=== PATIENT | male | born 1930 | race Caucasian/White ===

== ENCOUNTER 2016-07-24 14:51 | Emergency (ER) | payer SELFPAY ==
[2016-07-24] MEDS ORDERED: Lidocaine 1% 5ml(IM or SUTURE)(PAIN CLINIC) IJ ONE (15:08)
[2016-07-24 17:03] VITALS: BP 132/87
--- NOTE | 2016-07-24 17:05 | ED Physician Documentation ---
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 denies: chest pain, shortness of breath GI/: none. denies: vomiting, nausea (dementia detached retina hi chol) - PAST HX Past History: other (dementia detached retina hi chol) Surgeries/Procedures: none Allergies/Adverse Reactions: Allergies Allergy/AdvReac Type Severity Reaction Status Date / Time No Known Allergies Allergy Verified 07/24/16 15:10 Home Medications: Ambulatory Orders Medication Instructions Recorded Donepezil HCl [Donepezil HCl] 25 mg PO DAILY 07/24/16 Risperidone [Risperdal] 25 mg PO DAILY 07/24/16 - SOCIAL HX Smoking History: non-smoker Alcohol Use: none Drug Use: none - FAMILY HX Family History: No - VITAL SIGNS Vital Signs: Vital Signs Temp Pulse Resp BP Pulse Ox 98.9 F 101 H 20 140/91 97 07/24/16 14:51 07/24/16 14:51 07/24/16 14:51 07/24/16 14:51 07/24/16 14:51 - REVIEWED ASSESSMENTS Nursing Assessment Reviewed: Yes Vitals Reviewed: Yes Procedures Wound Location: upper extremity, other (the nail is quite long w/ fungus prolonged soaking in betadine then debride the fungus and trim long nail) Wound's Depth, Shape: superficial Wound Explored: cut w/ pt pocket knife Betadine Prep?: Yes Wound Repaired With: Dermabond ED Results Lab/Radiology - Orders Orders: ED Orders Category Date Time Status Lidocaine 1% 5ml(IM or SUTURE) [Xylocaine] Med 07/24/16 15:08 Discontinued 50 mg IJ NOW ONE General Adult Physical Exam - PHYSICAL EXAM GENERAL APPEARANCE: mild distress RESPIRATORY: no resp distress, chest non-tender, breath sounds normal CVS: reg rate & rhythm, heart sounds normal ABDOMEN: soft, non-tender SKIN: warm/dry, normal color. No: cyanosis, diaphoresis, jaundice EXTREMITIES: other (.7 cm u-shaped lat distal tip lt index finger w/ marked onycomycosis under naiol. nail is quite long). No: non-tender NEURO: oriented X3. No: depressed mood/affect Discharge Clincal Impression: Laceration of left index finger, onycomycosis lt index finger nail Referrals: Primary Doctor,No [Primary Care Provider] - 2 Days Home Medications: Ambulatory Orders Donepezil HCl [Donepezil HCl] 25 mg PO DAILY 07/24/16 Risperidone [Risperdal] 25 mg PO DAILY 07/24/16 Comments: betadine sent home w/pt and instructions in use Condition: Good Disposition: 01 HOME, SELF-CARE Decision to Admit: NO Decision Time: 17:04
== END 2016-07-24 16:59 | disposition home or self-care (01) ==
LOC: ED 14:51
DX: S61.211A Laceration without foreign body of left index finger without damage to nail, initial encounter (principal); W26.0XXA Contact with knife, initial encounter; Y93.9 Activity, unspecified; Y99.9 Unspecified external cause status
CPT/HCPCS: 12001; 99283